=== PATIENT | male | born 1955 | race Caucasian/White ===

== ENCOUNTER 2018-05-29 13:51 | Emergency (ER) | payer SELFPAY ==
[~2018-05-29] VITALS: Ht 180.3 cm; Wt 79.4 kg
[2018-05-29] MEDS ORDERED: Norco 5mg/325mg tab ORAL ONE (15:00)
[2018-05-29] MEDS ORDERED: NORCO 5-325 TA1 EACH ORAL (15:03)
[2018-05-29 15:16] VITALS: BP 133/71
--- NOTE | 2018-05-29 16:02 | Emergency Room Report ---
History of Present Illness General Chief Complaint: General Complaint Source: Patient Present Illness HPI 63-year-old male presents ED complaining of right hip pain. States that he had prior hip [place]. Patient states he had a recent fall and was taken to another ER and had x-rays done which were negative. Patient states he still has continued pain. Is not scheduled to see his orthopedic doctor for a few days. Is requesting a few days of Worden. States he takes Worden 10. Pain is a 8 out of 10, throbbing, nonradiating. Patient is bearing weight. Denies any other injuries. No other aggravating relieving factors. Denies any other associated symptoms Allergies: Coded Allergies: No Known Allergies (Unverified , 05/29/18) Patient History Past Medical History: none Past Surgical History: other - R hip replacement Pertinent Family History: none Social History: Denies: smoking, alcohol use, drug use Immunizations: UTD Reviewed Nursing Documentation: PMH: Agreed; PSxH: Agreed Nursing Documentation-PMH Past Medical History: No History, Except For Review of Systems All Other Systems: negative except mentioned in HPI Physical Exam Vital Signs Date Time Temp Pulse Resp B/P (MAP) Pulse Ox O2 Delivery O2 Flow Rate FiO2 05/29/18 14:34 98.2 64 16 145/82 95 Room Air 98.2 Sp02 EP Interpretation: reviewed, normal General Appearance: no apparent distress, alert, GCS 15, non-toxic Head: normocephalic Eyes: bilateral eye normal inspection, bilateral eye PERRL ENT: normal ENT inspection Neck: normal inspection Respiratory: normal inspection Cardiovascular #1: normal inspection Gastrointestinal: normal inspection Rectal: deferred Genitourinary: no CVA tenderness Musculoskeletal: gait/station normal, normal range of motion, tender - R hip Neurologic: alert, oriented x3, responsive, motor strength/tone normal, sensory intact, speech normal Psychiatric: normal inspection Skin: normal inspection Lymphatic: normal inspection Medical Decision Making Diagnostic Impression: Primary Impression: Chronic pain Qualified Codes: G89.29 - Other chronic pain ER Course 63-year-old male presents to ED refill of his pain medication. takes [facility] course: After initial history, I reviewed EMR. This documents patient's first visit here. However I have seen this patient in the past. I recognize this patient and his history. Patient always presents with the same history of recent hip surgery and recent fall and scheduled this see orthopedic doctor for additional pain meds However patient denies having made here in the past. I am unable to find any contradictory history in [facility]. I agreed to provide him with 6 tablets of Worden 5 mg. I explained to patient that we do not typically refill chronic pain meds and in the future he may not receive nonemergent prescriptions from the emergency room Diagnosis - chronic pain Stable and discharged to home with prescription for Worden. Followup with PMD. Return to ED if symptoms recur or worsen Last Vital Signs Date Time Temp Pulse Resp B/P (MAP) Pulse Ox O2 Delivery O2 Flow Rate FiO2 05/29/18 14:34 98.2 64 16 145/82 95 Room Air 98.2 Status: improved Disposition: HOME, SELF-CARE Condition: Stable Scripts Hydrocodone Bit/Acetaminophen 5-325* (NORCO 5-325*) 1 Each Tablet 1 TAB ORAL Q6H PRN for For Pain, #6 TAB 0 Refills Prov: Larry Do MD 05/29/18 Referrals: NOT CHOSEN [facility]/,REFERRING (PCP) Patient Instructions: Chronic Pain Larry Do MD May 29, 2018 16:02
== END 2018-05-29 15:34 | disposition home or self-care (01) ==
LOC: EMR 15:34
DX: G89.29 Other chronic pain (principal); M25.551 Pain in right hip; Z96.641 Presence of right artificial hip joint
CPT/HCPCS: 99283